=== PATIENT | female | born 1955 | race Caucasian/White ===

== ENCOUNTER → 2024-10-13 | Outpatient (CLI) | payer MEDICARE ==
--- NOTE | 2024-10-14 04:52 | HMCIMG ---
EXAM: CR Abdomen, 1 view. CLINICAL HISTORY: Pain. COMPARISON: None provided. FINDINGS: There is a 9 mm calculus in the left renal area. Presumed pelvic phleboliths. Nonobstructed nonspecific bowel gas pattern. A component of mild constipation is present in the colon. No free air is evident. No aggressive appearing osseous lesion. IMPRESSION: There is a 9 mm calculus in the left renal area. Presumed pelvic phleboliths. A component of mild constipation is present in the colon. /[place]
--- NOTE | 2024-10-14 04:53 | HMCIMG ---
EXAM: Tomogram Abdomen, 7 views. CLINICAL HISTORY: Pain. COMPARISON: None provided. FINDINGS: There is a 9 mm calculus in the left renal area. Presumed pelvic phleboliths. Nonobstructed nonspecific bowel gas pattern. A component of mild constipation is present in the colon. No free air is evident. No aggressive appearing osseous lesion. IMPRESSION: There is a 9 mm calculus in the left renal area. Presumed pelvic phleboliths. A component of mild constipation is present in the colon. /[place]
== END | disposition home or self-care (01) ==
LOC: RAH 15:08
PROVIDERS: ATTEND Urology
DX: N20.0 Calculus of kidney (principal); K59.00 Constipation, unspecified
CPT/HCPCS: 74018; 76100